=== PATIENT | male | born 1950 | race Caucasian/White ===

== ENCOUNTER 2016-08-19 02:53 | Inpatient (IN) | payer MEDICARE, BC ==
--- NOTE | 2016-08-19 03:17 | ERNOTE ---
Dyspnea - General Presenting Symptoms: shortness of breath Source: patient Exam Limitations: no limitations - Immun/Allergies/Home Medications Immunizations: IMMUNIZATION HX Immunizations Up to Date Yes History of Influenza Vaccine No Hx Pneumococcal Vaccination Yes Allergies/Adverse Reactions: Allergies acetaminophen [From [place]] Allergy (Verified 08/19/16 03:06) hydrocodone [From [place]] Allergy (Verified 08/19/16 03:06) oxycodone [From [place]] Allergy (Verified 08/19/16 03:06) lisinopril Adverse Reaction (Mild, Verified 08/19/16 03:06) COUGH Penicillins Adverse Reaction (Mild, Verified 08/19/16 03:06) "NON-EFFECTIVE" CAT GUT SUTURES Adverse Reaction (Mild, Uncoded 08/19/16 03:06) REDNESS AND ITCHING Home Medications: HOME MEDICATIONS Ibuprofen [Motrin] 400 mg PO Q6H PRN 07/05/13 [Last Taken Unknown] Multivitamins [Multivitamin Hernán] 1 cap PO DAILY 07/05/13 [Last Taken Unknown] Aspirin [Aspirin EC] 81 mg PO DAILY 12/24/15 [Last Taken Unknown] Losartan Potassium [Cozaar] 50 mg PO DAILY 12/24/15 [Last Taken Unknown] Naproxen Sodium [Aleve] 220 mg PO BID PRN 12/24/15 [Last Taken Unknown] Tadalafil [Cialis] 10 mg PO ONCE PRN 12/24/15 [Last Taken Unknown] Cholecalciferol (Vitamin D3) [Vitamin D3] 5,000 unit PO DAILY 08/19/16 [Last Taken Unknown] - History of Present Illness Narrative: Patient has not felt well in a couple of days, he has had intermittent shaking, he has had a slight non productive cough. He has a CPAP machine that is not working right. He was already asleep when he started to have increased trouble breathing and started to shake. It seems that the shaking was the main reason that he came to the ER. He is coming by ambulance and is feeling better at this point. 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 Denies: chest pain/ discomfort Prior Treatment: Denies: recently seen, currently on antibiotics Review of Systems - Review of Systems Constitutional: Present: fever, chills ENT: Absent: ear pain, nose pain, nose congestion, sore throat Respiratory: Present: See HPI, shortness of breath, cough Cardiology: Absent: chest pain, palpitations Gastrointestinal/Abdominal: Absent: nausea, vomiting, abdominal pain Genitourinary: Present: frequency, dysuria Musculoskeletal: Absent: back pain Neurological: Absent: headache - Patient's Past Medical History Patient History - Medical: Other Patient History - Cardiac/Respiratory: Hypertension, Hyperlipidemia, Sleep Apnea Patient History - Cancer: No Hx of Cancer Patient History - Surgical Procedures: Appendectomy, Colonoscopy, T & A, Other Patient History - Other: None - Family History Father Family History - Medical: , No pertinent hx Family History - Cardiac/Respiratory: Coronary Heart Disease, CVA/Stroke Mother Family History - Medical: , No pertinent hx Family History - Cardiac/Respiratory: CVA/Stroke Sister Family History - Medical: Diabetes Type 2 Family History - Cardiac/Respiratory: No pertinent hx Son Family History - Medical: No pertinent hx Family History - Cardiac/Respiratory: Asthma - Social History Living Situations: spouse Abuse History: No History of abuse Psych History: No pertinent hx Smoking Status: Never smoker Alcohol Use: occasionally Drug Use: none - Immunizations Immunizations Up to Date: Yes Hx Pneumococcal Vaccination: Yes History of Influenza Vaccine: No Physical Exam - Physical Exam General Appearance: Present: wd/wn, alert, no apparent distress Eye Exam: Normal inspection: bilateral, PERRL: bilateral Ears, Nose, Throat: Present: normal ENT inspection Respiratory: Present: no respiratory distress, normal breath sounds, no accessory muscle use, lungs clear Cardiovascular/Chest: Present: regular rate, rhythm, no murmur Gastrointestinal/Abdominal: Present: normal bowel sounds, nontender, nondistended, soft Back Exam: Present: no CVA tenderness Extremity Exam: Present: no edema Neurological Exam: Present: alert, oriented, normal mood/affect Skin Exam: Present: normal color, warm/dry ED Progress - Results and Orders Patient's Lab Results:: I have reviewed the patient's lab results. - Vital Signs Patient's Vital Signs:: I have reviewed the patient's vital signs. Vital Signs: Vital Signs 08/19/16 02:56 Temperature 39.6 C H Pulse Rate 111 H Respiratory 26 H Rate Blood Pressure 151/70 O2 Sat by Pulse 93 Oximetry - X-Ray X-Ray #1 X-Ray: chest - no acute changes Interpretation: Interp. by me - Progress/Reassessment Chief Complaint: Dyspnea Progress Note-Subjective: 08/19/16 04:13 discussed results with patient and family, patient agrees to admission 08/19/16 04:25 discussed admission with ronald Walters to admit,continue levaquin Departure Clinical Impression: UTI (urinary tract infection) Qualifiers: Urinary tract infection type: acute cystitis Hematuria presence: with hematuria Qualified Code(s): N30.01 - Acute cystitis with hematuria Sepsis Qualifiers: Sepsis type: sepsis due to unspecified organism Qualified Code(s): A41.9 - Sepsis, unspecified organism - Departure Disposition: [facility] Condition: Good
[2016-08-19 03:32] LABS: Hematocrit 39.5 % (42.0-52.0); Hemoglobin 13.2 gm/dL (13.5-18.0); Mean Cell Volume 87.4 fl (78-100); Mean Corpuscular Hemoglobin 29.2 pg (27-31); Mean Corpuscular Hgb Conc 33.4 g/dl (32-36); Mean Platelet Volume 11.8 fl (6.0-9.5); Neutrophil # 4.5 K/mm3 (1.3-6.0); Neutrophil % 82.5 % (42-75.0); Platelet Count 116 K/mm3 (150-450); Red Blood Count 4.52 M/mm3 (4.7-6.0); Red Cell Distribution Width 13.2 % (11.5-14.0); White Blood Count 5.5 K/mm3 (4.0-10.5)
[2016-08-19 03:35] LABS: Urine Bilirubin Negative (NEGATIVE); Urine Blood 50 /ul (NEGATIVE); Urine Ketone Negative (NEGATIVE); Urine Nitrite Negative (NEGATIVE); Urine Protein 100 mg/dL (NEGATIVE); Urine Specific Gravity >=1.030 SP.GR. (1.005-1.030); Urine Urobilinogen Normal (NORMAL); Urine pH 5.5 pH (5.0-7.0)
[2016-08-19 03:38] LABS: Urine Amorphous Sediment Moderate - 2+ (NONE-FEW); Urine Appearance Cloudy; Urine Bacteria 1+; Urine Color Dark Yellow; Urine Mucus Moderate - 2+; Urine WBC 25-50 /hpf (0-5)
--- OUTSIDE RECORDS SUMMARY | 2016-08-19 03:40 | XMS REPORT | Continuity of Care Document ---
:1950 Demographics Phone Unavailable Preferred Language Unknown Marital Status Unknown Scientologist Affiliation Unknown Race Unknown Ethnic Group Unknown Author Organization [facility] ([facility]) [place] [address] Phone [phone] Care Team Providers Name Role Phone Unavailable Primary Care Provider Unavailable Source Comments This disclosure is being made pursuant to the Care Everywhere program, applicable federal and state laws, and may not contain all informaitonavailable regarding this patient.[facility] ([facility]) Active Allergies and Adverse Reactions Not on File Current Medications Not on file Active Problems Not on file Social History Tobacco Use Types Packs/Day Years Used Date Never Assessed Plan of Care Health Maintenance Due Date Last Done Comments HCV Screening 1950 Hepatitis B Vaccine (1 of 3 - Primary Series) 1950 Tdap Vaccine 1961 Lipid Disorder Screening 1968 Td Vaccine 1968 Colonoscopy 04/17/2000 Prostate Cancer Screening 2000 Zoster Vaccine 2010 Pneumococcal Vaccine (1 of 2 - PCV13) 2015 Influenza Vaccine: Seasonal (#1) 10/06/2015 Results from Last 3 Months Not on file
[2016-08-19] MEDS ORDERED: ACETAMINOPHEN 325 MG TABLET PO ONE (03:41)
[2016-08-19] MEDS ORDERED: ACETAMINOPHEN 325 MG TABLET ONE (03:42)
[2016-08-19 03:55] LABS: Anion Gap 9.3 mmol/L (6.8-13.8); Bilirubin, Total 1.1 mg/dL (0.0-1.1); Ca. Corrected For Albumin 9.1 mg/dL (8.4-10.2); Calcium * 8.6 mg/dL (7.9-10.9); Carbon Dioxide 25.4 mmol/L (24-32.6); Potassium 3.7 mmol/L (3.4-4.6); Total Protein 7.1 gm/dL (6.2-8.2)
[2016-08-19] MEDS: NORMAL SALINE 1,000 ML IV PRN ×5 (04:03→21:35)
[2016-08-19] MEDS ORDERED: LEVOFLOXACIN/D5W 750 MG/150 ML BAG IV ONE (04:04)
--- OUTSIDE RECORDS SUMMARY | 2016-08-19 04:45 | XMS REPORT | Continuity of Care Document ---
:1950 Demographics Phone Unavailable Preferred Language Unknown Marital Status Unknown Judaism Affiliation Unknown Race Unknown Ethnic Group Unknown Author Organization [facility] ([facility]) Address [place] [address] Phone [phone] Care Team Providers Name Role Phone Unavailable Primary Care Provider Unavailable Source Comments This disclosure is being made pursuant to the Care Everywhere program, applicable federal and state laws, and may not contain all informaitonavailable regarding this patient.[facility] ([facility]) Active Allergies and Adverse Reactions [...]
[2016-08-19] MEDS ORDERED: ACETAMINOPHEN 325 MG TABLET PO PRN (04:50)
--- NOTE | 2016-08-19 06:29 | HP ---
Chief Complaint - Chief Complaint Date of Service: 08/19/16 Time of Service: 06:27 Chief Complaint: "Pain with urination, Chills". Source of HPI-Pt; reliable, ER provider. History of Present Illness: Mr. Kowalski is a 66-yr-old WM pt of Dr. Michelle Salazar with a PMH of: Basal Cell Carcinoma, HLD, HTN & DC. Pt states that he woke up at 2 am this morning with vigorous chills and tremors. He also felt SOB. states that on Wednesday 08/16, pt complained of having burning pain with urination. He treated his symptoms by drinking cranberry Juice and plenty of water. That seemed to provide some relief for his symptoms. However, pt states that he urinates frequently than normal and has the urgency to urinate even after voiding. He denies the associated symptoms of Abdominal Pain, Back Pain, Bloody urine & N/ V. He says that he has a f/u appt with Dr. Petty (Urology) in 2 months due to enlarged prostate and elevated PSA levels. At the ED, he was found to be febrile with a temp of 39.6 & 40.5. Even though he had no elevated WBC, there was some Left shift on CBC.The UA obtained showed he had a UTI and will therefore be admitted under observation status. - Patient's Past Medical History Patient History - Medical: Other - Erectile dysfucntion, Basal cell carcinoma. Patient History - Cardiac/Respiratory: Hypertension, Hyperlipidemia, Sleep Apnea Patient History - Cancer: No Hx of Cancer Patient History - Surgical Procedures: Appendectomy, Colonoscopy, T & A, Other Patient History - Other: None - Family History Father Family History - Medical: , No pertinent hx Family History - Cardiac/Respiratory: Coronary Heart Disease, CVA/Stroke Mother Family History - Medical: , No pertinent hx Family History - Cardiac/Respiratory: CVA/Stroke Sister Family History - Medical: Diabetes Type 2 Family History - Cardiac/Respiratory: No pertinent hx Son Family History - Medical: No pertinent hx Family History - Cardiac/Respiratory: Asthma - Social History Living Situations: spouse Abuse History: No History of abuse Psych History: No pertinent hx Smoking Status: Never smoker Alcohol Use: occasionally Drug Use: none - Immunizations Immunizations Up to Date: Yes Hx Pneumococcal Vaccination: Yes History of Influenza Vaccine: No Review Of Systems (GEN) - Review of Systems Generalized/Overall Review: Present: Weakness, Chills, Malaise. Absent: Fever EENTM: Absent: Eye Pain, Blurred Vision, Tearing Respiratory: Present: Cough, Shortness of Breath. Absent: Orthopnea Cardiac: Absent: Chest Pain, Edema, Palpitations, Syncope Abdominal: Absent: Nausea, Vomiting, Hematemesis, Abdominal Pain, Constipation, Diarrhea Genitourinary: Present: Burning, Urgency, Frequency Musculoskeletal: Absent: Joint Pain, Back Pain Neurological: Absent: Headache, Anxiety, Depressed, Numbness Skin: Absent: Dryness, Lesions Endocrine: Present: Flushing. Absent: Intolerance to Cold, Increased Hunger, Increased Thirst Misc: All systems neg except as marked Immunizations: IMMUNIZATION HX Immunizations Up to Date Yes History of Influenza Vaccine No Hx Pneumococcal Vaccination Yes Allergies/Adverse Reactions: Allergies Allergy/AdvReac Type Severity Reaction Status Date / Time acetaminophen [From [place]] Allergy Verified 08/19/16 03:06 hydrocodone [From [place]] Allergy Verified 08/19/16 03:06 oxycodone [From Percoc[place]] Allergy Verified 08/19/16 03:06 lisinopril AdvReac Mild COUGH Verified 08/19/16 03:06 Penicillins AdvReac Mild "NON-EFFECT Verified 08/19/16 03:06 SOBIA" CAT GUT SUTURES AdvReac Mild REDNESS Uncoded 08/19/16 03:06 AND ITCHING Home Medications: HOME MEDICATIONS Ibuprofen [Motrin] 400 mg PO Q6H PRN 07/05/13 [Last Taken Unknown] Multivitamins [Multivitamin Hernán] 1 cap PO DAILY 07/05/13 [Last Taken Unknown] Aspirin [Aspirin EC] 81 mg PO DAILY 12/24/15 [Last Taken Unknown] Losartan Potassium [Cozaar] 50 mg PO DAILY 12/24/15 [Last Taken Unknown] Naproxen Sodium [Aleve] 220 mg PO BID PRN 12/24/15 [Last Taken Unknown] Tadalafil [Cialis] 10 mg PO ONCE PRN 12/24/15 [Last Taken Unknown] Cholecalciferol (Vitamin D3) [Vitamin D3] 5,000 unit PO DAILY 08/19/16 [Last Taken Unknown] Exam - Exam Vital Signs: Vital Signs - Last Taken Temp 38.5 C H 08/19/16 05:11 Pulse 94 08/19/16 05:11 Resp 24 H 08/19/16 05:11 BP 112/49 08/19/16 05:11 Pulse Ox 94 08/19/16 05:11 Constitutional: Present: Alert, Oriented x3, Cooperative, No distress ENT Exam: Present: normal ENT inspection, hearing grossly normal, dry mucous membranes. Absent: nasal drainage Eye Exam: bilateral eye: normal inspection, PERRL Neck: Present: full range of motion, supple, normal inspection Back Exam: Present: normal inspection, no CVA tenderness Breasts: Present: Exam deferred Respiratory: Present: lungs clear, no accessory muscle use Cardiovascular/Chest: Present: normal peripheral pulses, regular rate, rhythm, no edema Abdomen: Present: Normal bowel sounds, soft, nontender. Absent: CVA tenderness /Rectal: Present: Exam deferred Extremity: Present: normal range of motion, non-tender, normal inspection Skin Exam: Present: warm/dry, no cyanosis Lymphatic: Present: no adenopathy Neurologic: Present: alert, normal mood/affect, oriented x 3 Appearance: Present: appropriate appearance, appropriate insight Eye contact: Present: cooperative, good eye contact, normal speech Thoughts: Present: normal thought pattern, no apparent hallucination Diagnostic Studies: Laboratory Results WBC 5.5 K/mm3 (4.0-10.5) 08/19/16 03:31 RBC 4.52 M/mm3 (4.7-6.0) L 08/19/16 03:31 Hgb 13.2 gm/dL (13.5-18.0) L 08/19/16 03:31 Hct 39.5 % (42.0-52.0) L 08/19/16 03:31 MCV 87.4 fl (78-100) 08/19/16 03:31 MCH 29.2 pg (27-31) 08/19/16 03:31 MCHC 33.4 g/dl (32-36) 08/19/16 03:31 RDW 13.2 % (11.5-14.0) 08/19/16 03:31 Plt Count 116 K/mm3 (150-450) L 08/19/16 03:31 MPV 11.8 fl (6.0-9.5) H 08/19/16 03:31 Immature Gran % (Auto) 0.90 % (0.001-0.429) H 08/19/16 03:31 Immature Gran # (Auto) 0.05 K/mm3 (0.000-0.0310) H 08/19/16 03:31 Neutrophils % 82.5 % (42-75.0) H 08/19/16 03:31 Lymphocytes % 12.2 % (20-51) L 08/19/16 03:31 Monocytes % 3.5 % (0.0-9) 08/19/16 03:31 Eosinophils % 0.5 % (0.0-3.0) 08/19/16 03:31 Basophils % 0.4 % (0.0-1.0) 08/19/16 03:31 Nucleated RBC % 0.0 k/mm3 (0-1) 08/19/16 03:31 Neutrophils # 4.5 K/mm3 (1.3-6.0) 08/19/16 03:31 Lymphocytes # 0.7 k/mm3 (1.5-3.5) L 08/19/16 03:31 Monocytes # 0.2 k/mm3 (0.0-1.0) 08/19/16 03:31 Eosinophils # 0.0 k/mm3 (0.0-0.7) 08/19/16 03:31 Absolute Basophils 0.0 k/mm3 (0.0-0.1) 08/19/16 03:31 Sodium 131 mmol/L (132-142) L 08/19/16 03:31 Plasma Sodium 132 mmol/L (130-142) 08/19/16 03:31 Potassium 3.7 mmol/L (3.4-4.6) 08/19/16 03:31 Chloride 100 mmol/L (97-106) 08/19/16 03:31 Carbon Dioxide 25.4 mmol/L (24-32.6) 08/19/16 03:31 Anion Gap 9.3 mmol/L (6.8-13.8) 08/19/16 03:31 BUN 18 mg/dL (6-23) D 08/19/16 03:31 Creatinine 1.20 mg/dL (0.4-1.4) 08/19/16 03:31 Est GFR (Non-Af Amer) 64 mL/min (60-130) D 08/19/16 03:31 BUN/Creatinine Ratio 15.0 (9.0-21.6) 08/19/16 03:31 Random Glucose 175 mg/dL (70-110) H 08/19/16 03:31 Lactic Acid, Venous 2.7 mmol/L (0.4-1.9) H* 08/19/16 03:31 Calcium 8.6 mg/dL (7.9-10.9) 08/19/16 03:31 Calcium Adj for Albumin 9.1 mg/dL (8.4-10.2) 08/19/16 03:31 Total Bilirubin 1.1 mg/dL (0.0-1.1) 08/19/16 03:31 AST 13 U/L (0-48) 08/19/16 03:31 ALT 23 U/L (19-67) 08/19/16 03:31 Alkaline Phosphatase 86 U/L (50-170) 08/19/16 03:31 B-Natriuretic Peptide 58 pg/mL (5-350) 08/19/16 03:31 Total Protein 7.1 gm/dL (6.2-8.2) 08/19/16 03:31 Albumin 3.0 gm/dl (3.4-5.0) L 08/19/16 03:31 Urine Color Dark yellow 08/19/16 03:31 Urine Appearance Cloudy 08/19/16 03:31 Urine pH 5.5 pH (5.0-7.0) 08/19/16 03:31 Ur Specific [place] >=1.030 SP.GR. (1.005-1.030) 08/19/16 03:31 Urine Protein 100 mg/dL (NEGATIVE) H 08/19/16 03:31 Urine Glucose (UA) Negative mg/dL (NEGATIVE) 08/19/16 03:31 Urine Ketones Negative mg/dL (NEGATIVE) 08/19/16 03:31 Urine Blood 50 /ul (NEGATIVE) H 08/19/16 03:31 Urine Nitrate Negative (NEGATIVE) 08/19/16 03:31 Urine Bilirubin Negative mg/dl (NEGATIVE) 08/19/16 03:31 Prot Sulfosalicylic Acd 4+ mg/dL (0) H 08/19/16 03:31 Urine Urobilinogen Normal EU/dl (NORMAL) 08/19/16 03:31 Ur Leukocyte Esterase 75 /ul (NEGATIVE) H 08/19/16 03:31 Urine RBC 5-10 /hpf (0-5) H 08/19/16 03:31 Urine WBC 25-50 /hpf (0-5) H 08/19/16 03:31 Ur Epithelial Cells 5-10 /hpf (0-5) H 08/19/16 03:31 Amorphous Sediment Moderate - 2+ (NONE-FEW) H 08/19/16 03:31 Urine Bacteria 1+ (NONE) H 08/19/16 03:31 Urine Mucus Moderate - 2+ (NONE) H 08/19/16 03:31 Urine Culture Comments Culture to follow 08/19/16 03:31 Assessment/Plan - Assessment/Plan (1) UTI (urinary tract infection) Assessment: Pt reported dysuria, frequency & Urgency. He had fevers but no flank pain, Abdominal pain & n/v to suggest pylonephritis or renal calculi obstruction. UA showed UTI. Most UTI in men will occur due to bladder outlet obstruction from BPH or renal calculi. Will check PVR for retention problems leading to incomplete bladder emptying. Will cover with IV antibiotics until culture results and treat with IVF hydration. Will need referral to Urology sooner than later after discharge, as i suspect that his UTI may have been precipitated by BPH . Problem: Acute Qualifiers: Urinary tract infection type: acute cystitis Hematuria presence: with hematuria Qualified Code(s): N30.01 - Acute cystitis with hematuria (2) HTN (hypertension) Assessment: Stable- On Losartan. Problem: Chronic (3) HLD (hyperlipidemia) Problem: Chronic (4) Obstructive sleep apnea Assessment: Use the Hospital CPAP unit. Problem: Chronic
[2016-08-19 10:28] LABS: Urine Bilirubin Negative (NEGATIVE); Urine Blood 50 /ul (NEGATIVE); Urine Ketone Negative (NEGATIVE); Urine Nitrite Negative (NEGATIVE); Urine Protein 30 mg/dL (NEGATIVE); Urine Urobilinogen Normal (NORMAL); Urine pH 5.5 pH (5.0-7.0)
[2016-08-19 10:39] LABS: Urine Amorphous Sediment Few - 1+ (NONE-FEW); Urine Appearance Cloudy; Urine Bacteria 3+; Urine Color Yellow; Urine Hyaline Cast 0-5 /LPF; Urine Mucus Few - 1+; Urine WBC 25-50 /hpf (0-5)
[2016-08-19] MEDS: ACETAMINOPHEN 500 MG TABLET PO PRN (20:03)
[2016-08-19] MEDS: LOSARTAN POTASSIUM 50 MG TABLET PO SCH (20:05)
[2016-08-20] MEDS ORDERED: LEVOFLOXACIN/D5W 750 MG/150 ML BAG IV SCH (04:00)
[2016-08-20] MEDS: ACETAMINOPHEN 500 MG TABLET PO PRN ×2 (04:56→17:42)
[2016-08-20 05:51] LABS: Hematocrit 37.4 % (42.0-52.0); Hemoglobin 12.5 gm/dL (13.5-18.0); Mean Cell Volume 86.6 fl (78-100); Mean Corpuscular Hemoglobin 28.9 pg (27-31); Mean Corpuscular Hgb Conc 33.4 g/dl (32-36); Mean Platelet Volume 11.8 fl (6.0-9.5); Neutrophil # 4.1 K/mm3 (1.3-6.0); Neutrophil % 80.2 % (42-75.0); Platelet Count 103 K/mm3 (150-450); Red Blood Count 4.32 M/mm3 (4.7-6.0); Red Cell Distribution Width 13.3 % (11.5-14.0); White Blood Count 5.1 K/mm3 (4.0-10.5)
[2016-08-20 06:16] LABS: Albumin * 2.3 gm/dl (3.4-5.0); Anion Gap 12.3 mmol/L (6.8-13.8); BUN/Creatinine Ratio 13.8 (9.0-21.6); Bilirubin, Total 0.4 mg/dL (0.0-1.1); Ca. Corrected For Albumin 9.2 mg/dL (8.4-10.2); Calcium * 8.2 mg/dL (7.9-10.9); Carbon Dioxide 24.5 mmol/L (24-32.6); Potassium 3.8 mmol/L (3.4-4.6); Total Protein 6.2 gm/dL (6.2-8.2)
--- NOTE | 2016-08-20 12:40 | PN ---
Subjective - Date and Time Seen Date: 08/20/16 Time: 10:00 Subjective Narrative: feels better, had a maximum temp of 41.1C on 08/19/2016. Denies nausea/ vomiting/ abdominal pain. Objective - Review of Systems Generalized/Overall Review: Denies: Weakness, Chills, Fever Respiratory: Denies: Cough, Shortness of Breath Cardiac: Denies: Chest Pain, Edema Genitourinary Symptoms: Denies: Burning, Itching - Vitals Vitals: Vital Signs Temp 37.1 C 08/20/16 02:06 Pulse 67 08/20/16 03:00 Resp 20 08/20/16 03:00 BP 132/59 08/20/16 02:06 Pulse Ox 95 08/20/16 03:00 - Abnormal Lab Findings Abnormal Lab Findings: Laboratory Tests 08/20/16 05:48 WBC 5.1 Hgb 12.5 L Hct 37.4 L Plt Count 103 L 08/20/16 05:48 Plasma Sodium 141 Potassium 3.8 Chloride 107 H Carbon Dioxide 24.5 BUN 12 Creatinine 0.87 Est GFR (Non-Af Amer) 93 D Random Glucose 165 H Calcium Adj for Albumin 9.2 Total Bilirubin 0.4 AST 19 ALT 21 Alkaline Phosphatase 70 Total Protein 6.2 Albumin 2.3 L Microbiology 08/19/16 03:39 Urine,Voided Urine Culture - Preliminary Gram Negative Bacilli 08/19/16 03:20 Blood Blood Culture - Preliminary Gram Negative Bacilli - Exam Constitutional: Present: Alert, Oriented x3, Cooperative, No distress, Middle aged, Obese ENT Exam: Present: hearing grossly normal, moist mucous membranes Respiratory: Present: lungs clear, normal breath sounds Cardiovascular/Chest: Present: regular rate, rhythm. Absent: tachycardia Abdomen: Present: Normal bowel sounds, soft, nontender, obese. Absent: CVA tenderness Extremity: Present: normal inspection, no pedal edema Skin Exam: Present: normal color, warm/dry Eye contact: Present: good eye contact, normal speech Assessment/Plan Plan Narrative: 1. Bacteremia due to UTI : Blood and urine cultures growing gram-negative bacilli, ID and sensitivity pending. Patient on ceftriaxone 2 g IV daily. Florastor 250 mg PO BID. Will need to be inpatient until sensitivities are back and a decision can be made whether he will require inpatient IV antibiotics/ antibiotics through the [facility]/ discharged home on PO antibiotics for a period of 10-14 days. 2. BPH : Has elevated PSA levels for which he is followed by Dr. Rizzo. 3. Hypertension: Continue losartan 50 mg at bedtime. 4. DC on CPAP: Having difficulties at home; currently at 11 cm H2O. On auto CPAP during hospitalization. Will need outpatient sleep studies. 5. Obesity: BMI 35.0.
[2016-08-20] MEDS: SACCHAROMYCES BOULARDII 250 MG CAPSULE PO SCH ×2 (13:45→21:19)
[2016-08-20] MEDS: CHOLECALCIFEROL 5,000 UNIT TABLET PO SCH (13:46)
[2016-08-20] MEDS: ENOXAPARIN SODIUM 40 MG/0.4 ML SYRG SC SCH (13:50)
[2016-08-20] MEDS: LOSARTAN POTASSIUM 50 MG TABLET PO SCH (21:20)
--- NOTE | 2016-08-21 08:14 | DS ---
(1) Sepsis Problem: Resolved Qualifiers: Sepsis type: Escherichia coli Qualified Code(s): A41.51 - Sepsis due to Escherichia coli [E. coli] (2) UTI (urinary tract infection) Diagnosis(s): E.Coli Problem: Acute Qualifiers: Urinary tract infection type: acute cystitis Hematuria presence: with hematuria Qualified Code(s): N30.01 - Acute cystitis with hematuria (3) HLD (hyperlipidemia) Problem: Chronic (4) HTN (hypertension) Problem: Chronic Qualifiers: Hypertension type: essential hypertension Qualified Code(s): I10 - Essential (primary) hypertension (5) Obstructive sleep apnea Problem: Chronic Description of Stay: Silverio Kowalski is a 66-yr-old WM pt of Dr. Michelle Salazar with a PMH of: Basal Cell Carcinoma, HLD, HTN & DC who was admitted on 08/19/16 for chills and fever. He woke up at 2 am on the morning of admission with vigorous chills and tremors. He also felt SOB. 3 days [employer]EL[employer], pt complained of having burning pain with urination. He treated his symptoms by drinking cranberry Juice and plenty of water. That seemed to provide some relief for his symptoms. However, pt states that he urinates frequently than normal and has the urgency to urinate even after voiding. He denies the associated symptoms of Abdominal Pain, Back Pain, Bloody urine & N/V. He says that he has a f/u appt with Dr. Petty (Urology ) in 2 months due to enlarged prostate and elevated PSA levels. At the ED, he was found to be febrile with a temp of 39.6 & 40.5. Even though he had no elevated WBC, there was some Left shift on CBC.The UA obtained showed he had a UTI . He was started on IV Rocephin. His UCS and Blood culture grew E. Coli which was sensitive to Rocephin. He has been afebrile for 48 hours, and his WBC is normal. Will give his 3rd dose of IV rocephin today and will discharge patient on Ciprofloxacin x 7 more days as it had the best JOHN and has about the same bioavailabilty orally or intravenously. He will be discharge today and follow up with his PCP. Procedures Performed: none Discharge Disposition: Home self care Disposition: Home self-care Condition: Good Discharge Activity: Activity as tolerated Discharge Diet: Low salt Referrals: Michelle Salazar MD [Primary Care Provider] - Problem Oriented Discharge Instructions to Patient/Family: Urinary Tract Infection, Adult, [id number] Additional Patient Instructions (free text): Follow up with PCP in 1 week. Prescriptions (Any new or edited meds): Ciprofloxacin HCl [Cipro] 500 mg PO BID #20 tab Saccharomyces Boulardii [Florastor] 250 mg PO BID #30 capsule Complete Home Medications List: Complete Home Medication List: Ibuprofen [Motrin] 400 mg PO Q6H PRN 07/05/13 Multivitamins [Multivitamin Hernán] 1 cap PO DAILY 07/05/13 Aspirin [Aspirin EC] 81 mg PO DAILY 12/24/15 Losartan Potassium [Cozaar] 50 mg PO DAILY 12/24/15 Naproxen Sodium [Aleve] 220 mg PO BID PRN 12/24/15 Tadalafil [Cialis] 10 mg PO ONCE PRN 12/24/15 Cholecalciferol (Vitamin D3) [Vitamin D3] 5,000 unit PO DAILY 08/19/16 Ciprofloxacin HCl [Cipro] 500 mg PO BID #20 tab 08/21/16 Saccharomyces Boulardii [Florastor] 250 mg PO BID #30 capsule 08/21/16
[2016-08-21] MEDS: SACCHAROMYCES BOULARDII 250 MG CAPSULE PO SCH (09:13)
[2016-08-21] MEDS: CHOLECALCIFEROL 5,000 UNIT TABLET PO SCH (09:13)
[2016-08-21] MEDS: ENOXAPARIN SODIUM 40 MG/0.4 ML SYRG SC SCH ×2 (12:36→12:40)
[2016-08-21 14:59] VITALS: BP 139/70
== END 2016-08-21 15:22 | disposition home or self-care (01) | DRG 872 ==
LOC: ER 02:53 → MS 04:41 → OBSVTOIN 08-20 09:00
PROVIDERS: ADMIT Nurse Practitioner; ATTEND Internal Medicine
DX: A41.51 Sepsis due to Escherichia coli [E. coli] (principal); N30.01 Acute cystitis with hematuria; I10 Essential (primary) hypertension; E78.5 Hyperlipidemia, unspecified; Z79.82 Long term (current) use of aspirin
CPT/HCPCS: 36415; 71020; 80053; 81001; 83605; 83880; 85025; 87040; 87077; 87086; 87186; 94660; 96365; 99284; G0378

== ENCOUNTER 2018-03-20 06:29 | Inpatient (IN) | payer BC, MEDICARE ==
--- NOTE | 2018-02-15 07:34 | ANES ---
Anesthesia Pre Procedure Eval HOME MEDICATIONS Multivitamins [Multivitamin Hernán] 1 cap PO DAILY 07/05/13 [Last Taken 12/21/17] Aspirin [Aspirin EC] 81 mg PO DAILY 12/24/15 [Last Taken 12/17/17] Losartan Potassium [Cozaar] 50 mg PO DAILY 12/24/15 [Last Taken 12/20/17] Cholecalciferol (Vitamin D3) [Vitamin D3] 5,000 unit PO DAILY 08/19/16 [Last Taken 12/21/17] finasteride 5 mg tablet 5 mg PO .COMPLEX 10/12/17 [Last Taken 12/21/17] naproxen sodium 220 mg tablet 220 mg PO BID 10/12/17 [Last Taken 12/17/17] tamsulosin 0.4 mg capsule 0.4 mg PO DAILY 10/12/17 [Last Taken 12/21/17] timolol 0.25 % eye drops 1 drp OP BID 10/12/17 [Last Taken 12/22/17] Allergies/Adverse Reactions: Allergies Allergy/AdvReac Type Severity Reaction Status Date / Time hydrocodone [From [place]] Allergy hallucinations Verified 01/17/18 14:35 itching oxycodone [From Percocet] Allergy hallucinations Verified 01/17/18 14:35 itching adhesive tape AdvReac Mild Itching Verified 01/17/18 14:35 lisinopril AdvReac Mild COUGH Verified 01/17/18 14:35 Penicillins AdvReac Mild "NON-EFFECT Verified 01/17/18 14:35 SOBIA" CAT GUT SUTURES AdvReac Mild REDNESS Uncoded 12/22/17 08:54 AND ITCHING - Planned Procedure Planned Procedure: Left Total Knee Arthroplasty Medication List Reviewed:: Yes Allergies Verified: Yes Medical History (Last Reviewed 02/15/18 @ 07:32 by Florian Betancourt CRNA) Lives with spouse Non-smoker Rarely consumes alcohol BPH (benign prostatic hyperplasia) Onset Date: Unknown Erectile dysfunction Onset Date: 03/22/13 Hypertension Onset Date: 04/19/14 IFG (impaired fasting glucose) Onset Date: 04/19/14 Obesity Onset Date: 04/19/14 BMI 35.4 [place]-Schlatter's disease Onset Date: Unknown joint pains ; OA; LT forearm fracture [age 12]. Sleep apnea Onset Date: 04/19/14 on CPAP at 11cm w/ heated humidifier. Head injury Onset Date: 01/1973 stitches, broken nose and broken teeth Surgical History (Last Reviewed 02/15/18 @ 07:32 by Florian Betancourt CRNA) History of appendectomy Onset Date: Unknown as child History of arthroscopic knee surgery Onset Date: 07/06/13 left knee--dr. Medrano History of cataract surgery Onset Date: Unknown RT [ 02/25/17]; LT [03/11/17] History of colonoscopy Onset Date: 12/22/17 Jovita Graham-normal results. 12/22/17 Charmaine-diverticulosis. Recheck 10 yrs. History of esophagogastroduodenoscopy (EGD) Onset Date: 12/22/17 12/22/17 Charmaien-clotest negative, hiatal hernia. History of removal of cyst Onset Date: 11/25/15 dr graham-normal results 10/2014, 11/2015 History of tonsillectomy Onset Date: Unknown as child Humerus fracture Onset Date: 12/25/15 ORIF left proximal humerus-Dr. Cook Mohankita defect of cheek Onset Date: 11/17/15 excision- left cheek[ basal cell cancer]. Family History (Last Reviewed 02/15/18 @ 07:32 by Florian Betancourt CRNA) Mother , age 85-CVA CVA (cerebral vascular accident) Father , age 90-CVA, heart disease CVA (cerebral vascular accident) Cancer prostate Heart disease Sister Diabetes 1 sister Parkinson disease 1 sister Brother Cancer prostate Aunt Cancer paternal-bone Uncle Cancer paternal-esophageal ca - Family Anesthesia History Family History:: no untoward family reactions to anesthesia, no familial bleeding tendencies, no family history of clotting disorders, no family history of premature - Airway/Neck/Teeth Within Normal Limits:: Yes - chipped tooth Neck Exam: non-tender, limited range of motion - small os Mallampatti Score: 3 Thyromental (T-M) distance: > 6 cm Mandibulo Hyoid distance: > 3 cm - Respiratory Respiratory: chest non-tender, lungs clear Smoking Status: Never smoker Sleep Apnea currently treated: Yes Sleep Apnea by current assessment: Yes Discussed Risks/Treatment of DC: Yes - Cardiovascular Patient History - Cardiac/Respiratory: Hypertension Tolerates Activity: Fair Heart Sounds: S1 & S2, Regular - Anesthesia Assessment and Plan ASA Class: PS, II Anesthesia Type Plan: Block - Adductor canal for post op pain relief, Spinal
[~2018-03-20 06:29] MED LIST: RINGER'S SOLUTION,LACTATED 1,000 ML IV PRN; ROPIVACAINE HCL/PF 100 MG, EPINEPHrine 0.2 MG, KETOROLAC TROMETHAMINE 30 MG in NORMAL S... IJ PRN; TRANEXAMIC ACID 1,000 MG in NORMAL SALINE 100 ML IV PRN; ceFAZolin SODIUM 1 GM VIAL IV PRN
--- NOTE | 2018-03-20 07:22 | ANES ---
Anesthesia Pre Procedure Eval Vitals/Labs: Last Vital Signs Temp 36.7 C 03/20/18 06:41 Pulse 69 03/20/18 06:41 Resp 18 03/20/18 06:41 BP 139/67 03/20/18 06:41 Pulse Ox 96 03/20/18 06:41 HOME MEDICATIONS Multivitamins [Multivitamin Hernán] 1 cap PO DAILY 07/05/13 [Last Taken 03/19/18] Aspirin [Aspirin EC] 81 mg PO DAILY 12/24/15 [Last Taken 03/13/18] Cholecalciferol (Vitamin D3) [Vitamin D3] 5,000 unit PO DAILY 08/19/16 [Last Taken 03/19/18] finasteride 5 mg tablet 5 mg PO .COMPLEX 10/12/17 [Last Taken 03/19/18] naproxen sodium 220 mg tablet 220 mg PO BID 10/12/17 [Last Taken 03/13/18] tamsulosin 0.4 mg capsule 0.4 mg PO DAILY 10/12/17 [Last Taken 03/19/18] timolol 0.25 % eye drops 1 drp OP BID 10/12/17 [Last Taken 03/19/18] Losartan Potassium [Cozaar] 50 mg PO HS 03/20/18 [Last Taken 03/19/18] Allergies/Adverse Reactions: Allergies Allergy/AdvReac Type Severity Reaction Status Date / Time hydrocodone [From [place]] Allergy Intermediate hallucinations Verified 03/20/18 06:59 itching oxycodone [From Percocet] Allergy Intermediate hallucinations Verified 03/20/18 06:59 itching adhesive tape AdvReac Mild Itching Verified 03/03/18 10:04 lisinopril AdvReac Mild COUGH Verified 03/03/18 10:04 Penicillins AdvReac Mild "NON-EFFECT Verified 03/03/18 10:04 SOBIA" CAT GUT SUTURES AdvReac Mild REDNESS Uncoded 02/15/18 07:59 AND ITCHING - Planned Procedure Planned Procedure: Left Total Knee Arthroplasty Medication List Reviewed:: Yes Allergies Verified: Yes Medical History (Last Reviewed 03/20/18 @ 07:20 by Rohit Link CRNA) Edema swelling in bilateral feet. resolved. Right knee pain Lives with spouse Non-smoker Rarely consumes alcohol BPH (benign prostatic hyperplasia) Onset Date: Unknown Erectile dysfunction Onset Date: 03/22/13 Hypertension Onset Date: 04/19/14 IFG (impaired fasting glucose) Onset Date: 04/19/14 Obesity Onset Date: 04/19/14 BMI 35.4 [place]-Schlatter's disease Onset Date: Unknown joint pains ; OA; LT forearm fracture [age 12]. Resolved. Sleep apnea Onset Date: 04/19/14 on CPAP at 11cm w/ heated humidifier. Head injury Onset Date: 01/1973 stitches, broken nose and broken teeth Surgical History (Last Reviewed 03/20/18 @ 07:20 by Rohit Link CRNA) History of appendectomy Onset Date: Unknown as child History of arthroscopic knee surgery Onset Date: 07/06/13 left knee--dr. Medrano History of cataract surgery Onset Date: Unknown RT [ 02/25/17]; LT [03/11/17] History of colonoscopy Onset Date: 12/22/172008 Rachel-normal results. 12/22/17 Charmaine-diverticulosis. Recheck 10 yrs. History of esophagogastroduodenoscopy (EGD) Onset Date: 12/22/17 12/22/17 Charmaine-clotest negative, hiatal hernia. History of tonsillectomy Onset Date: Unknown as child Humerus fracture Onset Date: 12/25/15 ORIF left proximal humerus-Dr. Cook Mohankita defect of cheek Onset Date: 11/17/15 excision- left cheek[ basal cell cancer]. Family History (Last Reviewed 03/20/18 @ 07:20 by Rohit Link CRNA) Mother , age 85-CVA CVA (cerebral vascular accident) Father , age 90-CVA, heart disease Heart disease Cancer prostate CVA (cerebral vascular accident) Sister Diabetes 1 sister Brother Cancer prostate Aunt Cancer paternal-bone Uncle Cancer paternal-esophageal ca Sister Parkinson disease Daughter Eczema Son Asthma - Family Anesthesia History Family History:: no untoward family reactions to anesthesia, no familial bleeding tendencies, no family history of clotting disorders, no family history of premature - Airway/Neck/Teeth Within Normal Limits:: Yes - chipped tooth Mallampatti Score: 3 Thyromental (T-M) distance: > 6 cm Mandibulo Hyoid distance: > 3 cm - Respiratory Respiratory History: CPAP/BiPAP home use Respiratory Physical: lungs clear Smoking Status: Never smoker Discussed smoking cessation including day of surgery: No Sleep Apnea currently treated: Yes Discussed Risks/Treatment of DC: No - Cardiovascular Tolerate Activity: Fair Heart Sounds: S1 & S2, Regular - Anesthesia Assessment and Plan ASA Class: PS, II Anesthesia Type Plan: Block - ultrasound guided adductor canal nerve block for postop analgesia, Spinal
[2018-03-20] MEDS ORDERED: ONDANSETRON HCL/PF 2 MG/ML VIAL IV PRN (09:48)
[2018-03-20] MEDS ORDERED: MAGNESIUM HYDROXIDE 30 ML UDC PO PRN (09:48)
[2018-03-20] MEDS ORDERED: diphenhydrAMINE HCL 50 MG/ML VIAL IV PRN (09:48)
[2018-03-20] MEDS ORDERED: RINGER'S SOLUTION,LACTATED 1,000 ML IV PRN (09:48)
[2018-03-20] MEDS ORDERED: MORPHINE SULFATE 4 MG/ML SYRG IV PRN (09:48)
[2018-03-20] MEDS ORDERED: MAG HYDROX/ALUMINUM HYD/SIMETH 30 ML UDC PO PRN (09:48)
[2018-03-20] MEDS ORDERED: ZOLPIDEM TARTRATE 5 MG TABLET PO PRN (09:48)
--- NOTE | 2018-03-20 09:53 | OR ---
Operative Report - Dictated Report Narrative: Date: 03/20/2018 Preoperative diagnosis: Left Knee degenerative joint disease. Postoperative diagnosis: Left Knee degenerative joint disease. Procedure: Left Total knee arthroplasty. Surgeon: Tomy Medrano M.D. Administration Physician: Cliff Basurto PA-C (provided and essential set of skilled, educated hands that assisted with transfer, positioning, prepping, draping, manipulation, retraction, placement of jigs, injection, insertion of implants, irrigation, closure wounds, and dressings all of which could not be performed by the available surgical crew) Anesthesia: Spinal with regional block and local periarticular joint injection. Complications: None Specimens: Bone for disposal. Estimated blood loss: Minimal. Tourniquet time: 89 Minutes at 325 millimeters of mercury. Retained implants: Depuy Attune size 8 left lugged cemented posterior stabilized femoral component. Size 8 fixed-bearing cemented tibial platform. 8 by 8 millimeter posterior stabilized cross-linked tibial insert. 41 millimeter medialized patella button. Indications: Mr. Kowalski is a 67-year-old gentleman who has had long- standing left knee pain and arthrosis. This patient was followed in my clinic for period of time with significant complaints of left knee pain consistent with arthritic changes. He had failed conservative measures including, but not limited to, activity modification, passage of time, medications, and other conservative measures. Patient wished to proceed with surgical treatment. The risks, benefits, and alternatives were discussed in clinic. The risks of , blood clots, bleeding, infection, nerve/tendon blood vessel/ injury, malposition of components, intraoperative fracture, postoperative limited range of motion, persistent pain, failure of components, and need for additional procedures. Patient wished to proceed consent was obtained after answering all questions. Procedure: After marking the correct extremity on the floor, the patient was taken to the operating room. A timeout was performed. IV antibiotics consisting of Ancef were administered prior to the procedure. A regional followed by spinal anesthetic was induced by anesthesia, per my request, on the operative table with all bony prominences well-padded. Cade catheter was p laced, and a bump was placed under the operative side buttock. SCDs and CRAIG hose were utilized on the nonoperative leg. A well-padded tourniquet was applied to the operative thigh. The operative leg was then pre-scrubbed with alcohol, prepped, and draped in a standard sterile fashion. After exsanguinating the extremity with an Esmarch bandage, the tourniquet was inflated. After marking out the anterior knee for standard incision centered over the patella, the skin was incised and dissected down to the joint retinaculum. The joint retinaculum was marked out as well as the horizontal axis of the patella, and a standard medial parapatellar arthrotomy was then made. The most proximal aspect of the quadriceps tendon and the patella tendon insertion were protected from release. A partial synovectomy was performed as well as a resection of the infrapatellar fat pad. The distal femoral fat pad proximal to the trochlea was also resected using cautery. The soft tissues were elevated off the medial aspect of the proximal tibia using a Farley elevator ensuring that we did not transect the medial collateral ligament. Upon initial evaluation range of motion was approximately 0 degrees to 130 degrees of flexion. There were signs of advanced arthrosis in the medial and patellofemoral joint spaces. There were large marginal osteophytes which were removed with a rongeur. The knee was hyperflexed and the patella was tucked laterally. Protecting the surrounding soft tissues with Homans, an entry drill was placed down the femoral canal using Whitesides line for guidance into the entry point. The intramedullary femoral alignment catalina was utilized in order to cut the distal femur in 5 degrees of valgus resecting 10 millimeters of bone. Next the distal femur was sized to a size 8. A posterior referencing guide was utilized to place the distal femoral cutting block in 3 degrees of external rotation. This was pinned into place. The rotation was confirmed both visually and based on anatomic landmarks. The 4 in 1 cutting jig of the appropriate size was utilized in order to make all bony cuts. The angle wing was used to ensure no notching. Retractors were utilized in order to protect surrounding soft tissues. This cut did not result in any excessive notching. We then cut the box centered over the distal femur. This allowed for resection of the anterior and posterior cruciate ligaments. I then turned my attention to the preparation of the tibia. Using an extra medullary tibial alignment catalina, 2 millimeters of bone was resected off the medial articular surface. This was made perpendicular to the mechanical axis of the joint with the alignment catalina centered over the ankle mortise. The alignment catalina was checked and was noted to be parallel to the mechanical axis, centered over the medial one third of the tibial tubercle, paralleling the anterior surface of the tibia. We then turned our attention to the remaining meniscus and soft tissues. These were removed while protecting the surrounding ligaments and soft tissues. The marginal osteophytes off the anterior, posterior, medial, lateral aspects of the femur and tibia were removed. The tibia was sized out to a size 8. Next the tibia was drilled and punched in an externally rotated position. Next the trial femur and a series of tibial inserts were utilized in order to allow for full extension and maximal flexion. It was found that a 8 millimeter insert gave the best range of motion and stability at multiple flexion points as well as at full extension there was less than 2 mm of gapping both medially and laterally. There is minimal anterior translation with the knee at 90 degrees of flexion and no signs of being able to dislocate the knee. The patella was then prepared. The initial thickness was 25 millimeters. This was reamed down to 15 millimeters parallel to the anterior surface of the patella. It was sized out to a size 41 medialized patella button. This was then drilled and trialed. Without any medial restraint the patella tracked appropriately and did not sublux or dislocate. At this point, it was felt these were the appropriate sized implants, and all trials were removed. The standard periarticular joint injection consisting of ropivacaine, Toradol, and epinephrine were injected into the periarticular joint tissues. The bony surfaces were thoroughly irrigated with a pulsatile-suction saline irrigation device. A bone plug from the prior resected anterior chamfer cut was placed into the drill hole at the distal femur. The bony surfaces were then dried in preparation for placement of the implants. The cement was vacuum mixed per the women's swim coach's instructions. The cement was placed on the dry bony surfaces and posterior aspect of the implants. The implants were impacted into place, removing all extruded cement. At this point anesthesia administered tranexamic acid per protocol intravenously. The knee was placed in extension with axial loading with the trial insert while the cement cured. Once the cement cured, all remaining extruded cement was removed. The knee was placed through a range of motion with the trial insert to ensure appropriate range of motion and stability. Final range of motion was approximately 0 to 130 degrees. The knee was again thoroughly irrigated with pulsatile saline lavage. The final polyethylene insert was then impacted into place ensuring no retained soft tissues. The remaining periarticular joint injection was injected. A medium Hemovac drain was placed exiting superior laterally. The knee was then placed over a triangle and the arthrotomy was closed with interrupted #1 Vicryl after thoroughly irrigating the joint. The deep and subcutaneous tissues were closed with interrupted 0 and 3-0 Vicryl respectively. Skin was closed with a running subcutaneous 3-0 Monocryl and Prineo Dermabond dressing. 4 x 4's, Sof-Rol, and a full leg Subhash wrap were applied. All sponge, needle, blade, and instrument counts were correct prior to closing the wounds. Postoperative condition: The patient was awoken and transferred to the postanesthesia care unit in stable condition. Plan is to be admitted to the inpatient medical/surgical floor postoperatively for 24 hours of IV antibiotics, physical therapy, occupational therapy, and medical comanagement. Patient will be weightbearing as tolerated with range of motion as tolerated. DVT prophylaxis will be with SCDs, CRAIG hose, and pharmacological anticoagulation. Anticipated hospital stay is approximately 1-3 days.
--- NOTE | 2018-03-20 10:17 | ANES ---
Post Anesthesia Discharge - Transfer of Care Transfer of Care handoff given to nurse: Yes - Discharge from PACU Discharge from PACU when meets criteria: Yes - Discharge to ASU Discharge to ASU-no complications/pt stable: Yes
--- NOTE | 2018-03-20 10:20 | ANES ---
Anesthesia Procedure Note Procedure Note: ANESTHESIA PROCEDURE NOTE Date of Procedure: 03/20/2018. Time of procedure: 0740. Performed by: Rohit Link CRNA Spindle Tester: None. Preprocedure diagnosis: Left knee degenerative joint disease. Post procedure diagnosis: Same. Procedure: Left ultrasound guided adductor canal block for postoperative analgesia. Indications: The patient is a 67 -year-old male, requesting left ultrasound- guided abductor mouth block for postoperative analgesia related to left total knee arthroplasty. Findings: See below. Details of the procedure: The tissue over the intended target site was cleansed with ChloraPrepand draped in a sterile fashion. 2 ml Lidocaine 1 % was infiltrated to the skin and subcutaneous tissue at the intended target site. Under sterile technique and ultrasound guidance a 18-gauge Tuohy needle was inserted through the left sartorius muscle to the saphenous nerve just anterior and medial to the superficial femoral artery and vein. 15 mL's of 0.5% bupivacaine was injected after negative aspiration for blood. Needle tip and spread of local anesthetic surrounding the saphenous nerve was observed throughout the injection with real time ultrasound visualization. The Tuohy needle was then removed intact. No complications were noted. The images were retained in the Hospital medical database . EBL: Minimal. Fluids: N/A. Specimen: N/A. Post procedure condition: The patient tolerated the procedure well. No complications were noted. Thank you for this consultation. Rohit Link CRNA
[2018-03-20] MEDS: KETOROLAC TROMETHAMINE 15 MG/ML VIAL IV SCH ×3 (10:49→22:09)
[2018-03-20] MEDS: ceFAZolin SODIUM 1 GM in DEXTROSE 5 % IN WATER 100 ML IV SCH ×4 (10:49→16:47)
[2018-03-20] MEDS: MORPHINE SULFATE 10 MG/0.5 ML SYRINGE PO PRN ×3 (12:50→19:27)
[2018-03-20] MEDS: ACETAMINOPHEN 500 MG TABLET PO PRN (13:12)
--- NOTE | 2018-03-20 14:47 | ANES ---
Post Anesthesia Assessment - Vital Signs Vitals: Last Vital Signs Temp 36.8 C 03/20/18 10:54 Pulse 78 03/20/18 11:54 Resp 18 03/20/18 11:24 BP 148/75 03/20/18 11:54 Pulse Ox 97 03/20/18 11:54 Airway Patency: Normal - Mental Status Level Of Consciousness: Awake - Pain Level Pain Score: 0 - N/V Assessment Nausea/Vomiting Presence: None Dehydration:: No
[2018-03-20] MEDS ORDERED: LOSARTAN POTASSIUM 50 MG TABLET PO SCH (21:00)
[2018-03-20] MEDS ORDERED: SENNOSIDES/DOCUSATE SODIUM 1 TAB TABLET PO SCH (21:00)
[2018-03-20] MEDS: MORPHINE SULFATE 15 MG TABLET.SA PO SCH (21:55)
[2018-03-20] MEDS: TIMOLOL MALEATE 50 DROP BTL LEFTEYE SCH (21:58)
[2018-03-21] MEDS: MORPHINE SULFATE 10 MG/0.5 ML SYRINGE PO PRN ×3 (00:35→13:26)
[2018-03-21] MEDS: ceFAZolin SODIUM 1 GM in DEXTROSE 5 % IN WATER 100 ML IV SCH ×2 (00:37)
[2018-03-21] MEDS: ACETAMINOPHEN 500 MG TABLET PO PRN (00:41)
[2018-03-21] MEDS: KETOROLAC TROMETHAMINE 15 MG/ML VIAL IV SCH ×3 (03:28→15:57)
[2018-03-21 05:32] LABS: Anion Gap 15.6 mmol/L (6.8-13.8); BUN/Creatinine Ratio 11.9 (9.0-21.6); Calcium * 8.5 mg/dL (7.9-10.9); Carbon Dioxide 24.5 mmol/L (24-32.6); Estimated Creat Clear 85.1; Hematocrit 39.2 % (42.0-52.0); Hemoglobin 13.1 gm/dL (13.5-18.0); Mean Cell Volume 88.5 fl (78-100); Mean Corpuscular Hemoglobin 29.6 pg (27-31); Mean Corpuscular Hgb Conc 33.4 g/dl (32-36); Mean Platelet Volume 11.2 fl (8-11.3); Platelet Count 198 K/mm3 (150-450); Potassium 4.1 mmol/L (3.4-4.6); Red Blood Count 4.43 M/mm3 (4.7-6.0); Red Cell Distribution Width 12.3 % (11.5-14.0); White Blood Count 8.5 K/mm3 (4.0-10.5)
[2018-03-21] MEDS ORDERED: ENOXAPARIN SODIUM 40 MG/0.4 ML SYRG SC SCH (08:48)
[2018-03-21] MEDS ORDERED: CHOLECALCIFEROL 5,000 UNIT TABLET PO SCH (09:00)
[2018-03-21] MEDS ORDERED: FINASTERIDE 5 MG TABLET PO SCH (09:00)
[2018-03-21] MEDS ORDERED: MULTIVITAMINS 1 CAP CAPSULE PO SCH (09:00)
[2018-03-21] MEDS: TIMOLOL MALEATE 50 DROP BTL LEFTEYE SCH (09:27)
[2018-03-21] MEDS: MORPHINE SULFATE 15 MG TABLET.SA PO SCH (09:27)
--- NOTE | 2018-03-21 16:28 | DS ---
(1) Acute blood loss anemia Problem: Acute (2) Status post total left knee replacement Problem: Acute (3) HLD (hyperlipidemia) Problem: Chronic (4) HTN (hypertension) Problem: Chronic Qualifiers: (5) Obstructive sleep apnea Problem: Chronic Description of Stay: Mr. Kowalski was admitted to the floor after undergoing left total knee arthroplasty. Tolerated this well. Was admitted to the floor postoperatively for 24 hours of IV antibiotics, pain control, medical comanagement, and occupational and physical therapy. OT and PT were consulted to assist with activities of daily living and ambulation. Was made weightbearing as tolerated with range of motion as tolerated. Pain was initially controlled with IV regimen. This was transitioned to oral once tolerating a by mouth intake. Was resumed on home diet and medications. Had a Cade catheter inserted and the operating room which was discontinued on postoperative day 1. A drain was placed intraoperatively into the knee which was discontinued on postoperative day 1. Lovenox SCD and CRAIG hose were utilized for DVT prophylaxis. Vital signs remained stable to the hospital course. Serial labs were obtained which showed a final hemoglobin of 13.1 grams. BMP was reviewed and was stable. Physical examination throughout the hospital course showed an extremity that had sensation that was intact to light touch, palpable pulses, a benign wound, motor intact to the toes, ankle, and knee. Knee range of motion was approximately 5 degrees to 60 degrees. Once an oral pain regimen was tolerated and physical therapy goals were met, it was felt that they were stable for discharge to home. Instructions: Continue with weightbearing as tolerated and range of motion as tolerated. It is okay to shower and get the wound wet as long as there is no drainage from the wound. Do not bathe or soak the wound. If there is any drainage from the wound keep the wound clean and dry and cover with dry gauze and tape. Change every 2- 3 days as needed if there is any drainage. Cover wound while showering if there is any drainage. Continue with physical therapy. Resume home diet. Report any fever over 101.5 Fahrenheit, uncontrolled pain, increased drainage, foul odor of drainage, new or increased calf pain or shortness of breath, or any other significant complaints. A 325mg dialy aspirin will be started after finishing anticoagulation if not allergic. Continue with CRAIG hose on the operative extremity until instructed otherwise. No driving until instructed otherwise. Follow up in approximately 10-14 days. Procedures Performed: see notes below List Procedures: Left total knee arthroplasty Results and Findings: Lab Pending Results 03/21/18 05:15: WBC 8.5, RBC 4.43 L, Hgb 13.1 L, Hct 39.2 L, MCV 88.5, MCH 29.6, MCHC 33.4, RDW 12.3, Plt Count 198, MPV 11.2 03/21/18 05:15: Sodium 139, Plasma Sodium 140, Potassium 4.1, Chloride 103, Carbon Dioxide 24.5, Anion Gap 15.6 H, BUN 10, Creatinine 0.84, Est GFR (Non-Af Amer) 97, BUN/Creatinine Ratio 11.9, Random Glucose 148 H, Calcium 8.5 Discharge Location: Home Disposition: Home self-care Condition: Good Discharge Activity: Activity as tolerated, Weight bearing Discharge Diet: General/regular food Referrals: Iman Stewart MD [Primary Care Provider] - Additional Patient Instructions (free text): Physical Therapy at [facility] Rehb follow up on 03/23/18 at 10:00am. Follow up at Dr. Medrano's follow up office on TuesdayApr.11 at 9:45am. Prescriptions (Any new or edited meds): Enoxaparin Sodium [Lovenox] 40 mg SC Q24H #7 disp.syrin Morphine Sulfate 1 - 2 tab PO Q4H PRN #80 tab PRN Reason: Pain Morphine Sulfate [Ms Contin] 15 mg PO Q12H #20 tablet.sa Sennosides/Docusate Sodium [Senokot-S] 2 tab PO HS #60 tablet Complete Home Medications List: Complete Home Medication List: Multivitamins [Multivitamin Hernán] 1 cap PO DAILY 07/05/13 Cholecalciferol (Vitamin D3) [Vitamin D3] 5,000 unit PO DAILY 08/19/16 finasteride 5 mg tablet 5 mg PO .COMPLEX 10/12/17 naproxen sodium 220 mg tablet 220 mg PO BID 10/12/17 tamsulosin 0.4 mg capsule 0.4 mg PO DAILY 10/12/17 timolol 0.25 % eye drops 1 drp OP BID 10/12/17 Losartan Potassium [Cozaar] 50 mg PO HS 03/20/18 Enoxaparin Sodium [Lovenox] 40 mg SC Q24H #7 disp.syrin 03/21/18 Morphine Sulfate 1 - 2 tab PO Q4H PRN #80 tab 03/21/18 Morphine Sulfate [Ms Contin] 15 mg PO Q12H #20 tablet.sa 03/21/18 Sennosides/Docusate Sodium [Senokot-S] 2 tab PO HS #60 tablet 03/21/18 Amb Orders for Discharge: PT Evaluation and Treatment* Facility: [facility], Location: Rehabilitation Services
[2018-03-21 16:53] VITALS: BP 150/72
[2018-03-21] MEDS ORDERED: TAMSULOSIN HCL 0.4 MG CAP.SR.24H PO SCH (19:00)
== END 2018-03-21 17:28 | disposition home or self-care (01) | DRG 470 ==
LOC: MS 06:29 → EDSTATUS 08:00
PROVIDERS: ADMIT Orthopaedic Surgery; ATTEND Orthopaedic Surgery
DX: I10 Essential (primary) hypertension; E78.5 Hyperlipidemia, unspecified; Z79.82 Long term (current) use of aspirin; Z88.0 Allergy status to penicillin; R73.02 Impaired glucose tolerance (oral); N52.9 Male erectile dysfunction, unspecified; M17.12 Unilateral primary osteoarthritis, left knee; M25.762 Osteophyte, left knee; Z88.5 Allergy status to narcotic agent; E66.9 Obesity, unspecified; G47.33 Obstructive sleep apnea (adult) (pediatric); N40.0 Benign prostatic hyperplasia without lower urinary tract symptoms; Z91.048 Other nonmedicinal substance allergy status; Z80.42 Family history of malignant neoplasm of prostate; Z68.35 Body mass index [BMI] 35.0-35.9, adult; D62 Acute posthemorrhagic anemia; Z82.49 Family history of ischemic heart disease and other diseases of the circulatory system; R60.9 Edema, unspecified; M92.50 Unspecified juvenile osteochondrosis of tibia and fibula; Z85.828 Personal history of other malignant neoplasm of skin; Z88.8 Allergy status to other drugs, medicaments and biological substances
CPT/HCPCS: 36415; 73560; 80048; 85027; 94660; 97110; 97116; 97161; 97165; 97535

== ENCOUNTER 2018-05-03 06:31 | Inpatient (IN) ==
[~2018-05-03 06:31] MED LIST changes: +MORPHINE SULFATE 15 MG TABLET.SA PO PRN; -RINGER'S SOLUTION,LACTATED 1,000 ML IV PRN
[2018-05-03] MEDS: RINGER'S SOLUTION,LACTATED 1,000 ML IV PRN ×3 (07:26→08:52)
--- NOTE | 2018-05-03 07:36 | ANES ---
Anesthesia Pre Procedure Eval Vitals/Labs: Last Vital Signs Temp 36.8 C 05/03/18 06:42 Pulse 90 05/03/18 06:42 Resp 18 05/03/18 06:42 BP 122/69 05/03/18 06:42 Pulse Ox 98 05/03/18 06:42 HOME MEDICATIONS Multivitamins [Multivitamin Hernán] 1 cap PO DAILY 07/05/13 [Last Taken 05/02/18] Cholecalciferol (Vitamin D3) [Vitamin D3] 5,000 unit PO DAILY 08/19/16 [Last Taken 04/29/18] finasteride 5 mg tablet 5 mg PO .COMPLEX 10/12/17 [Last Taken 05/01/18] tamsulosin 0.4 mg capsule 0.4 mg PO DAILY 10/12/17 [Last Taken 05/02/18] timolol 0.25 % eye drops 1 drp OP BID 10/12/17 [Last Taken 05/02/18] Losartan Potassium [Cozaar] 50 mg PO HS 03/20/18 [Last Taken 05/02/18] aspirin 325 mg tablet 325 mg PO DAILY 04/11/18 [Last Taken 04/26/18] morphine 15 mg immediate release tablet See Rx Instructions PO .COMPLEX PRN #40 tab 04/11/18 [Last Taken Unknown] zolpidem 10 mg tablet 10 mg PO HS PRN #30 tab 04/25/18 [Last Taken 04/30/18] Sennosides/Docusate Sodium [Senokot-S] 2 tab PO HS PRN 05/03/18 [Last Taken Unknown] Allergies/Adverse Reactions: Allergies Allergy/AdvReac Type Severity Reaction Status Date / Time hydrocodone [From [place]] Allergy Intermediate hallucinations Verified 05/01/18 10:54 itching oxycodone [From Percocet] Allergy Intermediate hallucinations Verified 05/01/18 10:54 itching adhesive tape AdvReac Mild Itching Verified 05/01/18 10:54 lisinopril AdvReac Mild COUGH Verified 05/01/18 10:54 Penicillins AdvReac Mild "NON-EFFECT Verified 05/01/18 10:54 SOBIA" CAT GUT SUTURES AdvReac Mild REDNESS Uncoded 05/01/18 10:54 AND ITCHING - Planned Procedure Planned Procedure: Right Total Knee Arthroplasty Medication List Reviewed:: Yes Allergies Verified: Yes Medical History (Last Reviewed 05/03/18 @ 07:35 by Aneudy Navarro CRNA) Insomnia Left knee pain Edema swelling in bilateral feet. resolved. Lives with spouse Non-smoker Rarely consumes alcohol Right knee pain BPH (benign prostatic hyperplasia) Onset Date: Unknown Erectile dysfunction Onset Date: 03/22/13 Hypertension Onset Date: 04/19/14 IFG (impaired fasting glucose) Onset Date: 04/19/14 Obesity Onset Date: 04/19/14 BMI 35.4 Stephan-Schlatter's disease Onset Date: Unknown joint pains ; OA; LT forearm fracture [age 12]. Resolved. Sleep apnea Onset Date: 04/19/14 on CPAP at 11cm w/ heated humidifier. Head injury Onset Date: 01/1973 stitches, broken nose and broken teeth Surgical History (Last Reviewed 05/03/18 @ 07:35 by Aneudy Navarro CRNA) Hx of total knee arthroplasty Onset Date: ~03/20/18 Procedure: Left Total knee arthroplasty. Dr. Medrano History of appendectomy Onset Date: Unknown as child History of arthroscopic knee surgery Onset Date: 07/06/13 left knee--dr. Medrano History of cataract surgery Onset Date: Unknown RT [ 02/25/17]; LT [03/11/17] History of colonoscopy Onset Date: 12/22/172008 [facility]-normal results. 12/22/17 [facility]-diverticulosis. Recheck 10 yrs. History of esophagogastroduodenoscopy (EGD) Onset Date: 12/22/17 12/22/17 [facility]-clotest negative, hiatal hernia. History of tonsillectomy Onset Date: Unknown as child Humerus fracture Onset Date: 12/25/15 ORIF left proximal humerus-Dr. Cook [place] defect of cheek Onset Date: 11/17/15 excision- left cheek[ basal cell cancer]. Family History (Last Reviewed 05/03/18 @ 07:35 by Aneudy Navarro CRNA) Mother , age 85-CVA CVA (cerebral vascular accident) Father , age 90-CVA, heart disease Heart disease Cancer prostate CVA (cerebral vascular accident) Sister Diabetes 1 sister Brother Cancer prostate Aunt Cancer paternal-bone Uncle Cancer paternal-esophageal ca Sister Parkinson disease Daughter Eczema Son Asthma - Family Anesthesia History Family History:: no untoward family reactions to anesthesia - Airway/Neck/Teeth Teeth Condition: intact Neck Exam: limited range of motion Mallampatti Score: 3 Thyromental (T-M) distance: > 6 cm Mandibulo Hyoid distance: > 3 cm - Respiratory Respiratory Physical: lungs clear Smoking Status: Never smoker Sleep Apnea currently treated: Yes Sleep Apnea by current assessment: Yes - Cardiovascular Cardiac History: hypertension Tolerate Activity: Fair Heart Sounds: S1 & S2, Regular - Anesthesia Assessment and Plan ASA Class: PS, III Anesthesia Type Plan: Spinal - Rt adductor canal block for postop analgesia
[2018-05-03] MEDS ORDERED: FINASTERIDE 5 MG TABLET PO SCH ×2 (09:00→17:30)
[2018-05-03] MEDS ORDERED: ZOLPIDEM TARTRATE 5 MG TABLET PO PRN (09:46)
[2018-05-03] MEDS ORDERED: diphenhydrAMINE HCL 50 MG/ML VIAL IV PRN (09:46)
[2018-05-03] MEDS ORDERED: ONDANSETRON HCL/PF 2 MG/ML VIAL IV PRN (09:46)
[2018-05-03] MEDS ORDERED: MAG HYDROX/ALUMINUM HYD/SIMETH 30 ML UDC PO PRN (09:46)
[2018-05-03] MEDS ORDERED: ACETAMINOPHEN 500 MG TABLET PO PRN (09:46)
[2018-05-03] MEDS ORDERED: MAGNESIUM HYDROXIDE 30 ML UDC PO PRN (09:46)
[2018-05-03] MEDS ORDERED: ZOLPIDEM TARTRATE 10 MG TABLET PO PRN (09:48)
--- NOTE | 2018-05-03 09:51 | OR ---
Operative Report - Dictated Report Narrative: Date: 05/03/2018 Preoperative diagnosis: Right Knee degenerative joint disease. Postoperative diagnosis: Right Knee degenerative joint disease. Procedure: Right Total knee arthroplasty. Surgeon: Tomy Medrano M.D. Zyglo Technician: Barrett Brenner PA-C (provided and essential set of skilled, educated hands that assisted with transfer, positioning, prepping, draping, manipulation, retraction, placement of jigs, injection, insertion of implants, irrigation, closure wounds, and dressings all of which could not be performed by the available surgical crew) Anesthesia: Spinal with regional block and local periarticular joint injection. Complications: None Specimens: Bone for disposal. Estimated blood loss: Minimal. Tourniquet time: 91 Minutes at 300 millimeters of mercury. Retained implants: Depuy Attune size 7 right lugged cemented posterior stabilized femoral component. Size 7 fixed-bearing cemented tibial platform. 7 by 5 millimeter posterior stabilized cross-linked tibial insert. 41 millimeter medialized patella button. Indications: Mr. Kowalski is a 68-year-old gentleman who with long-standing right knee pain and arthrosis. This patient was followed in my clinic for period of time with significant complaints of right knee pain consistent with arthritic changes. He had failed conservative measures including, but not limited to, activity modification, passage of time, medications, and other conservative measures. Patient wished to proceed with surgical treatment. The risks, benefits, and alternatives were discussed in clinic. The risks of , blood clots, bleeding, infection, nerve/tendon blood vessel/ injury, malposition of components, intraoperative fracture, postoperative limited range of motion, persistent pain, failure of components, and need for additional procedures. Patient wished to proceed consent was obtained after answering all questions. Procedure: After marking the correct extremity on the floor, the patient was taken to the operating room. A timeout was performed. IV antibiotics con sisting of Ancef were administered prior to the procedure. A regional followed by spinal anesthetic was induced by anesthesia, per my request, on the operative table with all bony prominences well-padded. Cade catheter was placed, and a bump was placed under the operative side buttock. SCDs and CRAIG hose were utilized on the nonoperative leg. A well-padded tourniquet was applied to the operative thigh. The operative leg was then pre-scrubbed with alcohol, prepped, and draped in a standard sterile fashion. After exsanguinating the extremity with an Esmarch bandage, the tourniquet was inflated. After marking out the anterior knee for standard incision centered over the patella, the skin was incised and dissected down to the joint retinaculum. The joint retinaculum was marked out as well as the horizontal axis of the patella, and a standard medial parapatellar arthrotomy was then made. The most proximal aspect of the quadriceps tendon and the patella tendon insertion were protected from release. A partial synovectomy was performed as well as a resection of the infrapatellar fat pad. The distal femoral fat pad proximal to the trochlea was also resected using cautery. The soft tissues were elevated off the medial aspect of the proximal tibia using a Farley elevator ensuring that we did not transect the medial collateral ligament. Upon initial evaluation range of motion was approximately 0 degrees to 130 degrees of flexion. There were signs of advanced arthrosis in the lateral and patellofemoral greater than medial joint spaces. There were large marginal osteophytes which were removed with a rongeur. The knee was hyperflexed and the patella was tucked laterally. Protecting the surrounding soft tissues with Homans, an entry drill was placed down the femoral canal using Whitesides line for guidance into the entry point. The intramedullary femoral alignment catalina was utilized in order to cut the distal femur in 5 degrees of valgus resecting 10 millimeters of bone. Next the distal femur was sized to a size 7. A posterior referencing guide was utilized to place the distal femoral cutting block in 3 degrees of external rotation. This was pinned into place. The rotation was confirmed both visually and based on anatomic landmarks. The 4 in 1 cutting jig of the appropriate size was utilized in order to make all bony cuts. The angle wing was used to ensure no notching. Retractors were utilized in order to protect surrounding soft tissues. This cut did not result in any excessive notching. We then cut the box centered over the distal femur. This allowed for resection of the anterior and posterior cruciate ligaments. I then turned my attention to the preparation of the tibia. Using an extra medullary tibial alignment catalina, 5 millimeters of bone was resected off the medial articular surface. This was made perpendicular to the mechanical axis of the joint with the alignment catalina centered over the ankle mortise. The alignment catalina was checked and was noted to be parallel to the mechanical axis, centered over the medial one third of the tibial tubercle, paralleling the anterior surface of the tibia. We then turned our attention to the remaining meniscus and soft tissues. These were removed while protecting the surrounding ligaments and soft tissues. The marginal osteophytes off the anterior, posterior, medial, lateral aspects of the femur and tibia were removed. The tibia was sized out to a size 7. Next the tibia was drilled and punched in an externally rotated position. Next the trial femur and a series of tibial inserts were utilized in order to allow for full extension and maximal flexion. It was found that a 5 millimeter insert gave the best range of motion and stability at multiple flexion points as well as at full extension there was less than 2 mm of gapping both medially and laterally. There is minimal anterior translation with the knee at 90 degrees of flexion and no signs of being able to dislocate the knee. The patella was then prepared. The initial thickness was 24 millimeters. This was reamed down to 14 millimeters parallel to the anterior surface of the patella. It was sized out to a size 41 medialized patella button. This was then drilled and trialed. Without any medial restraint the patella tracked appropriately and did not sublux or dislocate. At this point, it was felt these were the appropriate sized implants, and all trials were removed. The standard periarticular joint injection consisting of ropivacaine, Toradol, and epinephrine were injected into the periarticular joint tissues. The bony surfaces were thoroughly irrigated with a pulsatile-suction saline irrigation device. A bone plug from the prior resected anterior chamfer cut was placed into the drill hole at the distal femur. The bony surfaces were then dried in preparation for placement of the implants. The cement was vacuum mixed per the door patcher's instructions. The cement was placed on the dry bony surfaces and posterior aspect of the implants. The implants were impacted into place, removing all extruded cement. At this point anesthesia administered tranexamic acid per protocol intravenously. The knee was placed in extension with axial loading with the trial insert while the cement cured. Once the cement cured, all remaining extruded cement was removed. The knee was placed through a range of motion with the trial insert to ensure appropriate range of motion and stability. Final range of motion was approximately 0 to 120 degrees. The knee was again thoroughly irrigated with pulsatile saline lavage. The final polyethylene insert was then impacted into place ensuring no retained soft tissues. The remaining periarticular joint injection was injected. A medium Hemovac drain was placed exiting superior laterally. The knee was then placed over a triangle and the arthrotomy was closed with interrupted #1 Vicryl after thoroughly irrigating the joint. The deep and subcutaneous tissues were closed with interrupted 0 and 3-0 Vicryl respectively. Skin was closed with a running subcutaneous 3-0 Monocryl and Prineo Dermabond dressing. 4 x 4's, Sof-Rol, and a full leg Subhash wrap were applied. All sponge, needle, blade, and instrument counts were correct prior to closing the wounds. Postoperative condition: The patient was awoken and transferred to the postanesthesia care unit in stable condition. Plan is to be admitted to the inpatient medical/surgical floor postoperatively for 24 hours of IV antibiotics, physical therapy, occupational therapy, and medical comanagement. Patient will be weightbearing as tolerated with range of motion as tolerated. DVT prophylaxis will be with SCDs, CRAIG hose, and pharmacological anticoagulation. Anticipated hospital stay is approximately 1-3 days.
[2018-05-03] MEDS: KETOROLAC TROMETHAMINE 15 MG/ML VIAL IV SCH ×3 (10:44→22:37)
[2018-05-03] MEDS: ceFAZolin SODIUM 1 GM in DEXTROSE 5 % IN WATER 100 ML IV SCH ×6 (10:45→23:51)
[2018-05-03] MEDS: DEXTROSE 5%-LACTATED RINGERS 1,000 ML IV PRN ×2 (10:53→19:49)
--- NOTE | 2018-05-03 12:04 | ANES ---
Post Anesthesia Discharge - Transfer of Care Transfer of Care handoff given to nurse: Yes - Discharge from PACU Discharge from PACU when meets criteria: Yes
--- NOTE | 2018-05-03 12:04 | ANES ---
Post Anesthesia Assessment - Vital Signs Vitals: Last Vital Signs Temp 36.5 C 05/03/18 10:46 Pulse 67 05/03/18 10:46 Resp 18 05/03/18 10:46 BP 122/66 05/03/18 10:46 Pulse Ox 97 05/03/18 10:46 Airway Patency: Normal - Mental Status Level Of Consciousness: Awake - Pain Level Pain Score: 0 - N/V Assessment Nausea/Vomiting Presence: None Dehydration:: No
--- NOTE | 2018-05-03 12:08 | ANES ---
Anesthesia Procedure Note Procedure Note: ANESTHESIA PROCEDURE NOTE Date of procedure: 05/03/2018. Time of procedure: 45. Performed by: Vladimir Navarro CRNA Paper Guillotine Operator: Macy Brandt RN . Preprocedure diagnosis: Right knee DJD. Desire for postoperative analgesia. Post procedure diagnosis: Same. Procedure: Ultrasound-guided right adductor canal block Indications: Postop analgesia. Findings: Patient brought to operating operating room #4 and placed in a supine position. Patient was sedated. Patient's right inner thigh was prepped with ChloraPrep. Ultrasound was utilized to identify the adductor canal. A 20-gauge 4 inch regional block needle was advanced under ultrasound guidance until the tip of needle was positioned in abductor canal. A 20 mL of 0.25% Marcaine with epinephrine 1-200,000 was injected with adequate spread of local anesthesia noted. Regional block needle was removed intact. EBL: Minimal. Fluids: N/A. Specimen: N/A. Post procedure condition: The patient tolerated the procedure well. No complications were noted. Thank you for this consultation Vladimir Navarro CRNA
[2018-05-03] MEDS: MORPHINE SULFATE 10 MG/0.5 ML SYRINGE PO PRN ×3 (12:44→19:45)
[2018-05-03] MEDS: MORPHINE SULFATE 4 MG/ML SYRG IV PRN ×2 (15:49→22:49)
[2018-05-03] MEDS ORDERED: TAMSULOSIN HCL 0.4 MG CAP.SR.24H PO SCH (18:00)
[2018-05-03] MEDS: MORPHINE SULFATE 15 MG TABLET.SA PO SCH (20:56)
[2018-05-03] MEDS: TIMOLOL MALEATE 50 DROP BTL LEFTEYE SCH (20:57)
[2018-05-03] MEDS ORDERED: SENNOSIDES/DOCUSATE SODIUM 1 TAB TABLET PO SCH (21:00)
[2018-05-03] MEDS ORDERED: LOSARTAN POTASSIUM 50 MG TABLET PO SCH (21:00)
[2018-05-04] MEDS: MORPHINE SULFATE 4 MG/ML SYRG IV PRN (02:05)
[2018-05-04] MEDS: KETOROLAC TROMETHAMINE 15 MG/ML VIAL IV SCH ×3 (04:26→16:01)
[2018-05-04 05:31] LABS: Hematocrit 36.5 % (42.0-52.0); Hemoglobin 11.7 gm/dL (13.5-18.0); Mean Cell Volume 88.4 fl (78-100); Mean Corpuscular Hemoglobin 28.3 pg (27-31); Mean Corpuscular Hgb Conc 32.1 g/dl (32-36); Mean Platelet Volume 11.1 fl (8-11.3); Platelet Count 193 K/mm3 (150-450); Red Blood Count 4.13 M/mm3 (4.7-6.0); Red Cell Distribution Width 12.6 % (11.5-14.0); White Blood Count 8.6 K/mm3 (4.0-10.5)
[2018-05-04 06:18] LABS: Anion Gap 13.8 mmol/L (6.8-13.8); BUN/Creatinine Ratio 7.9 (9.0-21.6); Calcium * 8.5 mg/dL (7.9-10.9); Carbon Dioxide 26.3 mmol/L (24-32.6); Estimated Creat Clear 79.2; Potassium 4.1 mmol/L (3.4-4.6)
[2018-05-04] MEDS ORDERED: BENZOCAINE/MENTHOL 16 EACH BOX MM PRN (07:52)
[2018-05-04] MEDS: MORPHINE SULFATE 10 MG/0.5 ML SYRINGE PO PRN ×4 (08:23→15:59)
[2018-05-04] MEDS ORDERED: ENOXAPARIN SODIUM 40 MG/0.4 ML SYRG SC SCH (08:46)
[2018-05-04] MEDS ORDERED: MULTIVITAMINS 1 CAP CAPSULE PO SCH (09:00)
[2018-05-04] MEDS ORDERED: CHOLECALCIFEROL 5,000 UNIT TABLET PO SCH (09:00)
[2018-05-04] MEDS: MORPHINE SULFATE 15 MG TABLET.SA PO SCH (09:05)
[2018-05-04] MEDS: TIMOLOL MALEATE 50 DROP BTL LEFTEYE SCH (09:07)
--- NOTE | 2018-05-04 15:51 | DS ---
(1) Status post right knee replacement Problem: Acute (2) HTN (hypertension) Problem: Chronic Qualifiers: (3) HLD (hyperlipidemia) Problem: Chronic (4) Obstructive sleep apnea Problem: Chronic (5) Acute blood loss anemia Problem: Acute Description of Stay: Mr. Villalpando was admitted to the floor after undergoing right total knee arthroplasty. Tolerated this well. Was admitted to the floor postoperatively for 24 hours of IV antibiotics, pain control, medical comanagement, and occupational and physical therapy. OT and PT were consulted to assist with activities of daily living and ambulation. Was made weightbearing as tolerated with range of motion as tolerated. Pain was initially controlled with IV regimen. This was transitioned to oral once tolerating a by mouth intake. Was resumed on home diet and medications. Had a Cade catheter inserted and the operating room which was discontinued on postoperative day 1. A drain was placed intraoperatively into the knee which was discontinued on postoperative day 1. Lovenox SCD and CRAIG hose were utilized for DVT prophylaxis. Vital signs remained stable to the hospital course. Serial labs were obtained which showed a final hemoglobin of 11.7 grams. BMP was reviewed and was stable. Physical examination throughout the hospital course showed an extremity that had sensation that was intact to light touch, palpable pulses, a benign wound, motor intact to the toes, ankle, and knee. Knee range of motion was approximately 5 degrees to 75 degrees. Once an oral pain regimen was tolerated and physical therapy goals were met, it was felt that they were stable for discharge to home. Instructions: Continue with weightbearing as tolerated and range of motion as tolerated. It is OK to shower on the wound if it is not draining. If you note any drainage or for comfort you can cover with dry gauze and tape. Change every 2-3 days as needed. Continue with physical therapy. Resume home diet. Report any fever over 101.5 Fahrenheit, uncontrolled pain, increased drainage, foul odor of drainage, new or increased calf pain or shortness of breath, or any other s ignificant complaints. A 325mg dialy aspirin will be started after finishing anticoagulation if not allergic. Continue with CRAIG hose on the operative extremity until instructed otherwise. No driving until instructed otherwise. Follow up in approximately 10-14 days. Procedures Performed: see notes below List Procedures: Right total knee arthroplasty Results and Findings: Lab Pending Results 05/04/18 05:10: WBC 8.6, RBC 4.13 L, Hgb 11.7 L, Hct 36.5 L, MCV 88.4, MCH 28.3, MCHC 32.1, RDW 12.6, Plt Count 193, MPV 11.1 05/04/18 05:10: Sodium 138, Plasma Sodium 139, Potassium 4.1, Chloride 102, Carbon Dioxide 26.3, Anion Gap 13.8, BUN 7, Creatinine 0.89, Est GFR (Non-Af Amer) 90 D, BUN/Creatinine Ratio 7.9 L, Random Glucose 156 H, Calcium 8.5 Discharge Location: Home Disposition: Home self-care Condition: Good Discharge Activity: Activity as tolerated, Weight bearing, Other - with wheeled walker Discharge Diet: Low salt, Low fat/chol Referrals: Iman Stewart MD [Primary Care Provider] - Prescriptions (Any new or edited meds): Enoxaparin Sodium [Lovenox] 40 mg SC Q24H #7 disp.syrin Morphine Sulfate See Rx Instructions PO .COMPLEX PRN #40 tab PRN Reason: pain Morphine Sulfate [Ms Contin] 15 mg PO Q12H #14 tablet.sa Sennosides/Docusate Sodium [Senokot-S] 2 tab PO HS #30 tab Complete Home Medications List: Complete Home Medication List: Multivitamins [Multivitamin Hernán] 1 cap PO DAILY 07/05/13 Cholecalciferol (Vitamin D3) [Vitamin D3] 5,000 unit PO DAILY 08/19/16 finasteride 5 mg tablet 5 mg PO .COMPLEX 10/12/17 tamsulosin 0.4 mg capsule 0.4 mg PO DAILY 10/12/17 timolol 0.25 % eye drops 1 drp OP BID 10/12/17 Losartan Potassium [Cozaar] 50 mg PO HS 03/20/18 aspirin 325 mg tablet 325 mg PO DAILY 04/11/18 zolpidem 10 mg tablet 10 mg PO HS PRN #30 tab 04/25/18 Sennosides/Docusate Sodium [Senokot-S] 2 tab PO HS PRN 05/03/18 Enoxaparin Sodium [Lovenox] 40 mg SC Q24H #7 disp.syrin 05/04/18 Morphine Sulfate See Rx Instructions PO .COMPLEX PRN #40 tab 05/04/18 Morphine Sulfate [Ms Contin] 15 mg PO Q12H #14 tablet.sa 05/04/18 Sennosides/Docusate Sodium [Senokot-S] 2 tab PO HS #30 tab 05/04/18 Amb Orders for Discharge: PT Evaluation and Treatment* Facility: [facility], Location: Rehabilitation Services
[2018-05-04 18:08] VITALS: BP 149/69
== END 2018-05-04 16:45 | disposition home or self-care (01) | DRG 470 ==
LOC: MS 06:31 → EDSTATUS 08:30
PROVIDERS: ADMIT Orthopaedic Surgery; ATTEND Orthopaedic Surgery
DX: E78.5 Hyperlipidemia, unspecified; I10 Essential (primary) hypertension; Z96.652 Presence of left artificial knee joint; M17.11 Unilateral primary osteoarthritis, right knee; D62 Acute posthemorrhagic anemia; G47.33 Obstructive sleep apnea (adult) (pediatric)
CPT/HCPCS: 36415; 73560; 80048; 85027; 94660; 97110; 97116; 97161; 97165; 97530